=== PATIENT | female | born 1985 | race Caucasian/White ===

== ENCOUNTER 2017-07-28 08:43 | Emergency (ER) | payer OTHER ==
[~2017-07-28] VITALS: Ht 162.6 cm; Wt 73.0 kg
[2017-07-28] MEDS ORDERED: HYDROCODONE/ACETAMINOPHEN 5/325MG TABLET PO ONE (10:45)
[2017-07-28 11:17] LABS: HCG SCREEN NEGATIVE
[2017-07-28 11:30] VITALS: BP 122/80
== END 2017-07-28 13:38 | disposition home or self-care (01) ==
LOC: ER 10:08
DX: M54.9 Dorsalgia, unspecified (principal); R51 Headache; F17.210 Nicotine dependence, cigarettes, uncomplicated; Z88.6 Allergy status to analgesic agent; Z90.49 Acquired absence of other specified parts of digestive tract
CPT/HCPCS: 84703; 99283